=== PATIENT | male | born 1945 | race Hispanic/Latino ===

== ENCOUNTER 2020-01-15 09:00 | Day surgery (SDC) | payer MEDICARE ==
[2020-01-15] VITALS (9 sets, daily range): BP systolic 114–141; BP diastolic 67–81
[~2020-01-15] VITALS: Ht 165.1 cm; Wt 68.5 kg
[~2020-01-15 09:00] MED LIST: APIX5TAB PO; ASPI-555 PO; ATOR20TA65 PO; BIMA2.5D4 OU; BROM3DRO OD; FURO-152 PO; METO-408 PO; SODIUM CHLORIDE 0.9% 1000ML 1,000 ML IV ONE; SPIR25TA6 PO
[2020-01-15] MEDS ORDERED: HEPARIN SODIUM 1000UNIT/ML 10ML VIAL ONE (09:36)
[2020-01-15] MEDS ORDERED: MIDAZOLAM HCL 1 MG/ML 2ML VIAL ONE (09:37)
[2020-01-15] MEDS ORDERED: MEPERIDINE-PF 25 MG/ML SYG ONE (09:37)
[2020-01-15 09:38] LABS: BASOPHILS % (AUTO) 1.1 % (0.0-5.0); HEMATOCRIT 44.5 % (42-54); LYMPHOCYTES % (AUTO) 17.4 % (21.0-51.0); MEAN CORPUSCULAR HGB CONC 32.8 g/dL (32.0-36.0); MEAN CORPUSCULAR VOLUME 97.6 fL (79-99); MONOCYTES % (AUTO) 10.3 % (3.0-13.0); NEUTROPHILS % (AUTO) 67.8 % (40.0-77.0); PLATELET COUNT (AUTO) 191 K/uL (130-400); RED BLOOD CELL COUNT(AUTO) 4.56 MIL/uL (4.50-6.20); RED CELL DISTRIBUTION WIDTH 12.5 % (11.0-15.5); WHITE BLOOD COUNT (AUTO) 5.3 K/uL (4.8-10.8)
[2020-01-15 09:42] LABS: CREATININE 1.3 mg/dL (0.5-1.5); POTASSIUM 4.2 mmol/L (3.5-5.1)
--- NOTE | 2020-01-15 09:45 | NUR ---
PROCEDURE pt taken to semiconductor lab technician via bed for scheduled procedure. pt awake and alert. no distress noted. pt denied any pain or discomforts
[2020-01-15 09:52] LABS: INR 1.06 (0.85-1.15); PARTIAL THROMBOPLASTIN TIME 39.6 SEC (26.3-35.5); PROTHROMBIN TIME 11.4 SEC (9.6-11.6)
[2020-01-15] MEDS ORDERED: LIDOCAINE HCL 2% 20ML ONE (10:10)
[2020-01-15] MEDS ORDERED: METO-408 PO (12:31)
--- NOTE | 2020-01-15 12:40 | NUR ---
POST RECEIVED PT FROM HOT ROLL LAMINATOR , S/P SUCCESSFUL AFLUTTER ABLATION, RIGHT GROIN WITH DRESSING DRY AND INTACT. NO HEMATOMA OR BLEEDING TO SITE. VS STABLE ON ARRIVAL. PLAN OF CARE DISCUSS WITH PATIENT, INSTRUCTED TO KEEP BEDREST FOR 3 HRS. CALL LIGHT WITHIN REACH.
--- NOTE | 2020-01-15 15:20 | NUR ---
REPORT RECEIVED REPORT FROM ROBBIE NESS RN. PT D/C AT 1600. NO HEMATOMA OR ACTIVE BLEEDING NOTED JUST A SCANT STAIN OF BLOOD NOTED TO GAUZE.
--- NOTE | 2020-01-15 16:05 | NUR ---
DISCHARGE RT GROIN INTACT FREE FROM HEMATOMA OR BLEEDING. PT TAKEN OUT VIA W/C IN NO DISTRESS. RELATIVE WAS REINFORCED ON DISCHARGE INSTRUCTIONS
== END 2020-01-15 16:10 | disposition home or self-care (01) ==
LOC: DAH 09:00
PROVIDERS: ATTEND Internal Medicine Cardiovascular Disease
DX: I48.3 Typical atrial flutter (principal); I10 Essential (primary) hypertension; E78.5 Hyperlipidemia, unspecified; Z79.01 Long term (current) use of anticoagulants; Z96.611 Presence of right artificial shoulder joint
CPT/HCPCS: 36415; 80048; 85025; 85610; 85730; 93005; 93613; 93621; 93653; A4215; A4221; A4222; A4223 ×3; A4606; A4649 ×2; A4663; C1730; C1732; C1894 ×2; J1644 ×2; J2175; J2250; J3490; J7030; 99156; 99157

== ENCOUNTER 2023-04-23 13:27 | Inpatient (IN) | payer MEDICARE ==
[~2023-04-23] VITALS: Ht 165.1 cm; Wt 74.4 kg
[~2023-04-23 13:27] MED LIST changes: -ASPI-555 PO; +ASPI-556 PO; -SODIUM CHLORIDE 0.9% 1000ML 1,000 ML IV ONE
[2023-04-23 13:53] LABS: BASOPHILS # (AUTO) 0.06 K/uL (0.00-0.20); BASOPHILS % (AUTO) 0.8 % (0.0-5.0); EOSINOPHILS # (AUTO) 0.12 K/uL (0.00-0.70); EOSINOPHILS % (AUTO) 1.5 % (0.0-8.0); HEMATOCRIT 40.7 % (42-54); IMMATURE GRANULOCYTE ABSOLUTE 0.02 K/uL (0-1); LYMPHOCYTES % (AUTO) 12.9 % (21.0-51.0); MEAN CORPUSCULAR HEMOGLOBIN 30.3 pg (27.0-33.0); MEAN CORPUSCULAR HGB CONC 33.2 g/dL (32.0-36.0); MEAN CORPUSCULAR VOLUME 91.3 fL (79-99); MONOCYTES # (AUTO) 0.7 K/uL (0.1-1.0); MONOCYTES % (AUTO) 9.1 % (3.0-13.0); NEUTROPHILS # (AUTO) 5.9 K/uL (1.8-7.7); NEUTROPHILS % (AUTO) 75.4 % (40.0-77.0); PLATELET COUNT (AUTO) 212 K/uL (130-400); RED BLOOD CELL COUNT(AUTO) 4.46 MIL/uL (4.50-6.20); RED CELL DISTRIBUTION WIDTH 13.5 % (11.0-15.5); WHITE BLOOD COUNT (AUTO) 7.8 K/uL (4.8-10.8)
[2023-04-23 14:15] LABS: CREATININE 1.7 mg/dL (0.5-1.5); POTASSIUM 4.4 mmol/L (3.5-5.1)
[2023-04-23 14:19] LABS: ALBUMIN 3.6 g/dL (3.5-5.0); TOTAL PROTEIN, SERUM 7.5 g/dL (6.0-8.3)
[2023-04-23 14:27] LABS: APPEARANCE,URINE CLEAR (CLEAR); BILIRUBIN,URINE NEGATIVE (NEGATIVE); COLOR,URINE LIGHT-YELLOW (YELLOW); GLUCOSE, URINE (UA) NEGATIVE (NEGATIVE); KETONES,URINE NEGATIVE (NEGATIVE); LEUKOCYTE ESTERASE ,URINE NEGATIVE Leu/uL (NEGATIVE); NITRATE,URINE NEGATIVE (NEGATIVE); OCCULT BLOOD,URINE NEGATIVE (NEGATIVE); PH,URINE 5.5 (5.0-8.0); PROTEIN,URINE 10 mg/dL (NEGATIVE); UROBILINOGEN,URINE 0.2 mg/dL (0.2-1.0)
[2023-04-23 14:28] LABS: ADD UA MICROSCOPIC YES
[2023-04-23 14:29] LABS: MUCUS,URINE RARE LPF (None Seen); RBC,URINE 0-1 /HPF (0-1); WBC,URINE 0-1 /HPF (0-1)
[2023-04-23] MEDS ORDERED: SOTALOL HCL 80 MG TABLET PO SCH (17:30)
[2023-04-23] MEDS ORDERED: ACETAMINOPHEN 325 MG TAB PO PRN (18:00)
[2023-04-23] MEDS ORDERED: ONDANSETRON 4MG INJ IVP PRN (18:00)
[2023-04-23 19:15] VITALS: BP 124/98; PULSE 68; RESP 20
[2023-04-23] MEDS ORDERED: ATORVASTATIN 20 MG TABLET PO SCH (21:00)
[2023-04-23 21:04] VITALS: O2SAT 99
[2023-04-23] MEDS: APIXABAN 5 MG TABLET PO SCH (21:04)
[2023-04-23] MEDS: FAMOTIDINE 20MG TAB PO SCH (21:05)
[2023-04-23] MEDS ORDERED: EPLE50TA9 PO (22:10)
[2023-04-23] MEDS ORDERED: ATOR40TA69 PO (22:10)
[2023-04-24] VITALS (11 sets, daily range): BP systolic 106–161; BP diastolic 69–91; PULSE 50–67; RESP 12–18
[2023-04-24 04:01] LABS: CREATININE 1.6 mg/dL (0.5-1.5); POTASSIUM 4.7 mmol/L (3.5-5.1)
[2023-04-24] MEDS: FAMOTIDINE 20MG TAB PO SCH (08:47)
[2023-04-24] MEDS: APIXABAN 5 MG TABLET PO SCH (08:47)
[2023-04-24] MEDS ORDERED: SPIRONOLACTONE 25 MG TAB PO SCH (09:00)
[2023-04-24] MEDS ORDERED: ASPIRIN 81MG CHEW TAB PO SCH (09:00)
[2023-04-24] MEDS ORDERED: FUROSEMIDE 20 MG TABLET PO SCH (09:00)
[2023-04-24] MEDS ORDERED: SOTALOL HCL 80 MG TABLET PO SCH (09:00)
[2023-04-24] MEDS ORDERED: PROPOFOL 10 MG/ML 20ML VIAL IV ONE (15:01)
[2023-04-24] MEDS ORDERED: LIDOCAINE PF 100MG/5ML (2%) SYRINGE 5ML ONE (15:01)
== END 2023-04-24 19:12 | disposition home or self-care (01) | DRG 291 ==
LOC: EDH 13:27 → EDHIP 17:36 → 2DH 18:36
PROVIDERS: ADMIT Hospitalist; ATTEND Hospitalist
PROC: 5A2204Z Restoration of Cardiac Rhythm, Single (ICD-10-PCS; principal; 2023-04-24)
DX: I13.0 Hypertensive heart and chronic kidney disease with heart failure and stage 1 through stage 4 chronic kidney disease, or unspecified chronic kidney disease (principal); I50.33 Acute on chronic diastolic (congestive) heart failure; N17.9 Acute kidney failure, unspecified; I48.19 Other persistent atrial fibrillation; I27.20 Pulmonary hypertension, unspecified; I25.10 Atherosclerotic heart disease of native coronary artery without angina pectoris; E78.00 Pure hypercholesterolemia, unspecified; N18.9 Chronic kidney disease, unspecified; Z79.01 Long term (current) use of anticoagulants; Z79.899 Other long term (current) drug therapy; Z86.73 Personal history of transient ischemic attack (TIA), and cerebral infarction without residual deficits
CPT/HCPCS: 36415; 71045; 80048; 80053; 81001; 82948; 83735; 83880; 84484; 85025; 85378; 93005; G0378; J2001; J2704; J3490

== ENCOUNTER → 2024-04-11 | Outpatient (CLI) | payer MEDICARE ==
[~2024-04-11] MED LIST changes: -ATOR20TA65 PO; +ATOR40TA69 PO; -BIMA2.5D4 OU; -BROM3DRO OD; +EPLE50TA16 PO; +IOHEXOL 350 MG/ML 100ML INFUS..BTL IV ONE; -METO-408 PO; +METOPROLOL TARTRATE 1 MG/ML 5ML VIAL IV ONE; -SPIR25TA6 PO
== END | disposition home or self-care (01) ==
LOC: RAH 10:29
PROVIDERS: ATTEND Internal Medicine Cardiovascular Disease
DX: I48.4 Atypical atrial flutter (principal); I25.10 Atherosclerotic heart disease of native coronary artery without angina pectoris; R06.09 Other forms of dyspnea
CPT/HCPCS: 75574; J3490; Q9967

== ENCOUNTER 2025-05-01 06:11 | Day surgery (SDC) | payer MEDICARE ==
[2025-04-29 12:15] LABS: IMMATURE GRANULOCYTE ABSOLUTE 0.03 K/uL (0-1); NUCLEATED RED BLOOD CELLS 0.0 % (0.0-0.19); PLATELET COUNT (AUTO) 204 K/uL (130-400); RED BLOOD CELL COUNT(AUTO) 4.03 MIL/uL (4.50-6.20); RED CELL DISTRIBUTION WIDTH 14.5 % (11.0-15.5); WHITE BLOOD COUNT (AUTO) 7.3 K/uL (4.8-10.8)
[2025-04-29 12:16] LABS: APPEARANCE,URINE CLEAR (CLEAR); GLUCOSE, URINE (UA) NEGATIVE (NEGATIVE); LEUKOCYTE ESTERASE ,URINE NEGATIVE Leu/uL (NEGATIVE); NITRATE,URINE NEGATIVE (NEGATIVE); OCCULT BLOOD,URINE NEGATIVE (NEGATIVE)
[2025-04-29 12:20] LABS: ADD UA MICROSCOPIC YES
[2025-04-29 12:22] VITALS: BP 153/72; PULSE 85; RESP 17; TEMP 98.2
[2025-04-29 12:23] LABS: CREATININE 1.4 mg/dL (0.5-1.3); GLOMERULAR FILTR. RATE CALC 50.0 mL/min (>90); GLUCOSE,RANDOM 104.0 mg/dL (70-105); SODIUM SERUM 141.0 mmol/L (136-145); UREA NITROGEN, BLOOD 32.0 mg/dL (7-18)
[2025-04-29 12:27] LABS: INR 1.19 (0.85-1.15)
--- NOTE | 2025-04-29 13:33 | EKG ---
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
--- NOTE | 2025-04-29 17:01 | HMCIMG ---
EXAM: XR Chest, 1 View. CLINICAL HISTORY: 80-year-old male preop. COMPARISON: XR Chest 04/23/2023. FINDINGS: LUNGS: The lungs are clear. No consolidation. PLEURAL SPACES: No pleural effusion or pneumothorax. HEART: The heart size is mildly enlarged. BONES: No acute osseous abnormality. VASCULATURE: Atherosclerotic calcifications of the aorta. IMPRESSION: 1. No acute cardiopulmonary pathology. 2. Mildly enlarged heart size. /[place]
--- NOTE | 2025-04-30 09:14 | NUR ---
REPORT REPORT BNP/BUN/CREAT TO GREGORIA COFFEY NP. OK TO PROCEED
[2025-05-01] VITALS (9 sets, daily range): BP systolic 135–161; BP diastolic 57–85; PULSE 69–81; RESP 12–16; TEMP 97.4–97.6
[~2025-05-01] VITALS: Ht 165.1 cm; Wt 74.4 kg
[~2025-05-01 06:11] MED LIST changes: +BROM1.7D12 OD; +EPLE50TA PO; -EPLE50TA16 PO; -IOHEXOL 350 MG/ML 100ML INFUS..BTL IV ONE; -METOPROLOL TARTRATE 1 MG/ML 5ML VIAL IV ONE; +PROP225C24 PO; +TRAV2.5D6 OU
[2025-05-01] MEDS ORDERED: HEParin-NS 1,000 UNIT/500 ML 1,000 ML IV ONE (09:29)
[2025-05-01] MEDS ORDERED: IOHEXOL 350 MG/ML 100ML INFUS..BTL IV ONE (09:29)
[2025-05-01] MEDS ORDERED: LIDOCAINE HCL 400MG/20ML VIAL ONE (09:29)
[2025-05-01] MEDS ORDERED: NITROGLYCERIN 50MG VIAL ONE (09:30)
[2025-05-01] MEDS ORDERED: HEParin-NS 1,000 UNIT/500 ML 500 ML IV ONE (09:53)
[2025-05-01] MEDS ORDERED: MIDAZOLAM HCL 1 MG/ML 2ML VIAL ONE (09:55)
--- NOTE | 2025-05-01 11:29 | PRN ---
PROCEDURE NOTE Indications: Severe tricuspid regurgitation CKD stage III Normal left ventricle systolic function Non-obstructive CAD (coronary CTA done in 2023) Paroxysmal atrial fibrillation, on anticoagulation Diastolic dysfunction Procedures: RHC, LHC Introduction: After informed written consent was obtained, the patient was brought to the Catheterization Lab in the usual fasting state. Following sterile prep and drape, a time out was performed, then 1% Lidocaine was infiltrated into the right antecubital space and right wrist. Using a Modified Seldinger technique, a 6Fr Sheath was inserted into the right common femoral artery and a separate 6Fr Sheath was inserted into the right brachial vein. While under fluoroscopic guidance, a pigtail catheter was advanced over a wire into the central circulation where it aspirated, flushed and placed to continuous pressure monitoring. While under fluoroscopic guidance, a balloon tip swan catheter was aspirated, flushed and then advanced into the right atrium, right ventricle, pulmonary artery, and wedge position, all while under continuous pressure monitoring. Left Heart Catheterization: A pigtail catheter was advanced into the left ventricle and the pressure was re corded, then the catheter was removed from the left ventricle. LVEDP: 14mmHg Right Heart Catheterization: RA: 12 mean: 9mmHg RV: 28/3 mean: 1mmHg PA: 10 mean: 17mmHg PCWP: 31/07 mean: 9mmHg PA1: 56.7% PA2: 55.1% AO1: 91% AO2: 90.9% [place] CO: 3.63 L/min CI: 2.0 Medications given: None Coronary Intervention: None Complications: None Conscious sedation was not administered Closure of Access Site: After the case completed the six Yemeni sheath in the right brachial vein was pulled and manual pressure was applied until hemostasis was achieved. We then pulled the six [place]i arterial sheath in the right radial artery and applied a TR band and inflated it to achieve hemostasis. Conclusion: 1. Severe tricuspid regurgitation 2. Elevated right atrial pressure, which correlates with severe tricuspid regurgitation 3. Normal PA pressures, mean: 17mmHg 4. PCWP mean: 9mmHg 5. Normal LVEDP: 14mmHg 6. Normal cardiac output: 3.63L/min 7. Nonobstructive CAD (coronary CTA done in 2023) 8. Paroxysmal atrial fibrillation, on anticoagulation 9. Diastolic dysfunction Recommendation: 1. Continue goal-directed medical therapy 2. Please and act TR band removal protocol. 3. Wrist precautions 4. 3 hours of bedrest 5. Okay to DC once the TR band removed protocol has been complete and the right wrist is soft and free of bruising, bleeding, and hematoma formation. 6. No driving for the next 48 hours. 7. No heavy lifting or strenuous exercise for the next two weeks. 8. We will refer the patient for tricuspid valve replacement/repair as an outpatient KAITLYN CARDOSO MD May 01, 2025 11:29
[2025-05-01] MEDS ORDERED: DEXTROSE 50%-WATER 50 ML DISP.SYRIN IV PRN (11:30)
[2025-05-01] MEDS ORDERED: GLUCAGON 1MG KIT 1 MG ML IM PRN (11:30)
--- NOTE | 2025-05-01 13:21 | NUR ---
VASBAND REMOVED MINIMAL BRUISING NOTED NO ACTIVE BLEEDING NOTED TO AREA. VSS NAD. SKIN SOFT ASYMPTOMATIC
--- NOTE | 2025-05-01 13:55 | NUR ---
BOTH PT AND DAUGHTER GIVEN VERBAL AND WRITTEN DISCHARGE INSTRUCTIONS IV REMOVED SITE ASYMPTOMATIC. RIGHT AC AND RADIAL SITE ASYMPTOMATIC
== END 2025-05-01 14:14 | disposition home or self-care (01) ==
LOC: DAH 06:11
PROVIDERS: ATTEND Internal Medicine Cardiovascular Disease
DX: I25.10 Atherosclerotic heart disease of native coronary artery without angina pectoris (principal); I07.1 Rheumatic tricuspid insufficiency; I48.0 Paroxysmal atrial fibrillation; N18.30 Chronic kidney disease, stage 3 unspecified; I12.9 Hypertensive chronic kidney disease with stage 1 through stage 4 chronic kidney disease, or unspecified chronic kidney disease; R60.0 Localized edema; I49.1 Atrial premature depolarization; R06.09 Other forms of dyspnea; E78.5 Hyperlipidemia, unspecified; Z86.73 Personal history of transient ischemic attack (TIA), and cerebral infarction without residual deficits; Z88.0 Allergy status to penicillin; Z79.01 Long term (current) use of anticoagulants; Z79.82 Long term (current) use of aspirin; Z79.899 Other long term (current) drug therapy
CPT/HCPCS: 80048; 83880; 85025; 85610; 85730; 81001; 36415; 71045; 93005; 93453; C1769 ×2; C1894 ×2; A4649; Q9965; J3010; J3490 ×3; J2250; J1644 ×2; Q9967; A4215; A4222; A4221; A4663; A4216; A4606; A4223 ×3; 93451; 93452

== ENCOUNTER → 2025-07-09 | Outpatient (CLI) | payer MEDICARE ==
[~2025-07-09] MED LIST changes: +IOHEXOL-350 75 ML VIAL IV ONE
--- NOTE | 2025-07-09 14:40 | HMCIMG ---
CT CHEST WITH AND WITHOUT INTRAVENOUS CONTRAST CT ABDOMEN AND PELVIS WITH AND WITHOUT INTRAVENOUS CONTRAST Clinical History: Hyperlipidemia, unspecified. Other forms of dyspnea. Technique: Axial computed tomography images of the chest, abdomen, and pelvis were acquired with and without intravenous contrast. Contrast: None. Comparison: Chest radiograph dated 30 April 2025. Findings: Comparison is made with the chest radiograph dated 30 April 2025. Chest: Lungs: Hyperinflated lung chun are present in keeping with chronic obstructive pulmonary disease (COPD) changes, accompanied by mild bronchitis. Bilateral basal zones are involved. Subpleural calcific nodular infiltrates are noted in the left posterobasal segment. There is a 3 mm nodule in the right lower lobe posteriorly and medially. In the superior segment of the right lower lobe there are 2 nodules each measuring roughly 2 mm. The lungs otherwise appear essentially clear with no evidence of consolidation or additional nodules. Pleural Spaces: No pneumothorax or pleural effusions are evident. Heart: Mild cardiomegaly is present, consistent with prior chest radiograph dated 30 April 2025. There is mild calcific atherosclerosis involving the coronary circulation, specifically in the left anterior descending and right coronary arteries. The thoracic aorta demonstrates mild calcific atherosclerotic changes. Lymph Nodes: No lymphadenopathy is evident. Bony Thorax and Spine: There is a levoscoliotic deformity involving the thoracolumbar spine, measuring approximately 25 degrees. Severe degenerative spondylosis is noted from T12-L1 through L5-S1, with multilevel facet joint degeneration more prominent on the right side at T12-L1 and L1-L2, and on the left side from L4-L5 to L5-S1. Abdomen and Pelvis: Liver: The liver is mildly enlarged, measuring approximately the size reported (septum cm measurement unspecified in the input but noted as hepatomegaly), with fatty infiltration ("fatty liver changes"). No focal hepatic lesions are identified. Gallbladder and Bile Ducts: The gallbladder and biliary tree appear within normal limits. No biliary ductal dilatation or gallstones are visualized. Pancreas: Unremarkable in appearance. Spleen: Normal in size and morphology. Adrenal Glands: No abnormality detected. Kidneys, Ureters, and Bladder: Multiple right renal calculi are present, at least four in number, the largest measuring approximately 0.6 cm. A 0.3 cm calculus is noted in the left mid pole. Bilateral renal cortical cysts classified as Bosniak type I are identified, largest measuring 5.3 cm on the right and 3.2 cm on the left. No hydronephrosis is seen. The bladder appears normal. Stomach and Bowel: Uncomplicated colonic diverticulosis is present. There is fecal impaction noted in the colon and rectum. The stomach and small bowel appear unremarkable with no evidence of obstruction or enteritis. Appendix: No signs of acute appendicitis. Peritoneum: No free fluid or free air is seen. Reproductive Organs: Unremarkable. Lymph Nodes: No intra-abdominal lymphadenopathy is identified. Vasculature: Apart from mild calcific atherosclerosis noted in the chest vessels and thoracic aorta, no abdominal aortic aneurysm or other vascular abnormalities are evident. Bones: Severe degenerative changes are noted in the thoracolumbar spine as described above without acute osseous abnormality. Impression: * Scattered right sided lung nodules. * Mild cardiomegaly with mild calcific atherosclerosis of the coronary arteries and thoracic aorta, unchanged from recent chest radiograph dated 30 April 2025. * Hyperinflated lungs consistent with COPD changes and mild bronchitis. Subpleural calcific nodular infiltrates in the left posterobasal segment. * Mild hepatomegaly with fatty liver infiltration. * Multiple right renal calculi (largest 0.6 cm) and a smaller left mid pole calculus (0.3 cm). Bilateral Bosniak type I renal cortical cysts, largest 5.3 cm on the right and 3.2 cm on the left. No hydronephrosis. * Uncomplicated colonic diverticulosis with fecal impaction in colon and rectum. * Severe degenerative thoracolumbar spondylosis with multilevel facet joint degeneration and a 25??? levoscoliotic deformity of the thoracolumbar spine. No acute intrathoracic, intra-abdominal, or intra-pelvic abnormality is identified. /[place]
--- NOTE | 2025-07-10 05:31 | HMCIMG ---
EXAMINATION: DUPLEX ULTRASOUND EXAMINATION OF THE BILATERAL CAROTID AND VERTEBRAL ARTERIES. CLINICAL HISTORY: Hyperlipidemia. COMPARISON: None provided. TECHNIQUE: Real-time ultrasound scan of the bilateral carotid and vertebral arteries, 2-D grayscale, with color Doppler flow and spectral waveform analysis. FINDINGS: Color and spectral Doppler interrogation of the carotid vessels on the right demonstrate peak systolic velocities as follows: CCA (Proximal, mid, and distal): 62, 53, and 60 cm/s respectively. ECA: 51 cm/s. ICA (Proximal, mid, and distal): 58, 50, and 45 cm/s respectively. Vertebral artery demonstrates antegrade flow: 67 cm/s. Right ICA/CCA ratio: 0.9 Peak systolic velocities on the left are as follows: CCA (Proximal, mid, and distal): 62, 70, and 62 cm/s respectively. ECA: 82 cm/s. ICA (Proximal, mid, and distal): 58, 45, and 54 cm/s respectively. Vertebral artery demonstrates antegrade flow: 55 cm/s. Left ICA/CCA ratio: 0.8 Both the common carotid arteries and their branches reveal mild intimal thickening. There is a calcified plaque in the left bulb. IMPRESSION: Mild intimal thickening in the bilateral carotid arteries and their branches. Calcified plaque in the left bulb. No significant flow limiting lesions. /[place]
== END | disposition home or self-care (01) ==
LOC: RAH 08:38
PROVIDERS: ATTEND Internal Medicine Cardiovascular Disease
DX: Z01.818 Encounter for other preprocedural examination (principal); E78.5 Hyperlipidemia, unspecified; R91.1 Solitary pulmonary nodule; I51.7 Cardiomegaly; I25.10 Atherosclerotic heart disease of native coronary artery without angina pectoris; K76.0 Fatty (change of) liver, not elsewhere classified; N28.1 Cyst of kidney, acquired; N20.0 Calculus of kidney; I65.23 Occlusion and stenosis of bilateral carotid arteries; K57.30 Diverticulosis of large intestine without perforation or abscess without bleeding; K56.41 Fecal impaction; M43.8X5 Other specified deforming dorsopathies, thoracolumbar region; M47.815 Spondylosis without myelopathy or radiculopathy, thoracolumbar region; M47.817 Spondylosis without myelopathy or radiculopathy, lumbosacral region; J98.4 Other disorders of lung
CPT/HCPCS: 71270; 93880; 74178; Q9967